=== PATIENT | male | born 1950 | race Caucasian/White ===

== ENCOUNTER → 2019-04-01 | Outpatient (CLI) | payer OTHER ==
[~2019-04-01] VITALS: Ht 180.3 cm; Wt 88.5 kg
[~2019-04-01] MED LIST: AMLODIPINE BESY10 MG PO; ANORO ELLIPTA1 EACH INH; COLACE100 MG PO; DEXILANT60 MG PO; HYDROCHLOROTHIA25 M2 PO; IMDUR 30 MG TAB30 M1 PO; KLOR-CON 1010 MEQ PO; LEVOTHYROXIN0.075 MG PO; NEURONTIN100 MG PO; NORTRIPTYLINE H25 M3 PO; OMEPRAZOLE40 MG PO; OXYCODONE HCL15 MG PO; PLAVIX 75 MG TA75 M1 PO; PRAVACHOL20 MG PO; PROAIR HFA8.5 GM INH; REGLAN 10 MG TA10 MG PO; ROBAXIN 750 MG750 M1 PO; SPIRIVA INH; TRIAMCINOLONE A80 G2 TOP
[2019-04-01 09:26] VITALS: BP 140/77
== END | disposition home or self-care (01) ==
LOC: CATH 08:57
DX: T82.858A Stenosis of other vascular prosthetic devices, implants and grafts, initial encounter (principal); I77.1 Stricture of artery; I70.1 Atherosclerosis of renal artery; I10 Essential (primary) hypertension; I25.10 Atherosclerotic heart disease of native coronary artery without angina pectoris; E03.9 Hypothyroidism, unspecified; M19.90 Unspecified osteoarthritis, unspecified site; M81.0 Age-related osteoporosis without current pathological fracture; E78.5 Hyperlipidemia, unspecified; J44.9 Chronic obstructive pulmonary disease, unspecified; Z98.890 Other specified postprocedural states; Z79.899 Other long term (current) drug therapy; Z88.8 Allergy status to other drugs, medicaments and biological substances; Z87.891 Personal history of nicotine dependence; Y83.8 Other surgical procedures as the cause of abnormal reaction of the patient, or of later complication, without mention of misadventure at the time of the procedure

== ENCOUNTER → 2019-09-01 | Outpatient (CLI) | payer OTHER | LOC: SJCVCIMAG 08:39 | DX: I11.9 Hypertensive heart disease without heart failure (principal); I06.1 Rheumatic aortic insufficiency; I25.10 Atherosclerotic heart disease of native coronary artery without angina pectoris; I45.10 Unspecified right bundle-branch block; R94.31 Abnormal electrocardiogram [ECG] [EKG]; Z98.61 Coronary angioplasty status; Z79.899 Other long term (current) drug therapy; Z87.891 Personal history of nicotine dependence ==

== ENCOUNTER → 2020-01-06 | Outpatient (CLI) | payer OTHER ==
[~2020-01-06] MED LIST changes: +CLOTRIMAZOLE-BE15 GM TOP; +IMDUR 60 MG TAB60 M1 PO; +KENALOG100 GM TOP; +MAGNESIUM250 M1 PO; +MOVANTIK25 MG PO; +NITROGLYCERIN0.4 MG SUBLING; +PAMELOR25 MG PO; +POTASSIUM20 PO
== END ==
LOC: SJCVC 13:02
PROVIDERS: ATTEND Internal Medicine
DX: R94.31 Abnormal electrocardiogram [ECG] [EKG] (principal); I45.2 Bifascicular block; I25.10 Atherosclerotic heart disease of native coronary artery without angina pectoris; E78.00 Pure hypercholesterolemia, unspecified; I10 Essential (primary) hypertension; I73.9 Peripheral vascular disease, unspecified; Z79.899 Other long term (current) drug therapy; Z87.891 Personal history of nicotine dependence

== ENCOUNTER → 2020-01-12 | Outpatient (CLI) | payer OTHER ==
[~2020-01-12] VITALS: Ht 180.3 cm; Wt 92.1 kg
--- NOTE | ~2020-01-12 | H ---
[facility] [place] [address] HISTORY AND PHYSICAL Name: KAYLA VARMA Room #: REG ERMA Janelle#: [id number] Admission: 01/12/20 Attend Phys: Oscar Crowe Discharge: Date of : 54 Report #: [id number] THIS REPORT FOR: cc: Calderon Rodarte MD, John P. MD Lammoglia, Francisco J. MD ~ CC: Oscar Rodarte HISTORY OF PRESENT ILLNESS: This is a very pleasant 69-year-old gentleman who was seen in the office for assessment and evaluation of chest discomfort. He underwent noninvasive assessment, which was abnormal, which suggested ischemic regions of myocardium. Options of medical versus invasive were discussed. The patient shows invasive and therefore is here today for invasive diagnostic studies. PHYSICAL EXAMINATION: GENERAL: Well-developed, well-nourished male, resting comfortably, in no acute distress. HEENT: Normocephalic, atraumatic. Pupils are equal, round, reactive to light and accommodation. Extraocular muscles are intact. Sclerae and conjunctivae are anicteric. NECK: JVD is normal. Carotid upstrokes are bilaterally symmetrical. No bruits are heard. No thyromegaly. No lymphadenopathy. LUNGS: Clear to auscultation. No wheezes, rhonchi or crackles. No CVA tenderness. CARDIAC: Demonstrates a regular rhythm. Normal first and second heart sounds. No ventricular or atrial gallops, no rubs noted. No murmurs. No lifts or heaves, PMI normal. ABDOMEN: Soft, nontender, nondistended. Normal bowel sounds. EXTREMITIES: Without cyanosis, clubbing or edema. Distal pulses are intact. DTR symmetrical. NEUROLOGIC: Cranial nerves 2-12 are grossly normal and symmetrical. PSYCHIATRIC: Alert, oriented with normal affect. SKIN: Warm and dry. IMPRESSION AND PLAN: Chest discomfort, abnormal noninvasive evaluation. The risks, complications and alternatives to cardiac catheterization, percutaneous revascularization and conscious sedation have been discussed with the patient. Voices understanding and wishes to proceed. By: [id number] 1137 Oscar Crowe MD /nt
[2020-01-12 09:59] VITALS: BP 1301/79
[2020-01-12 10:07] LABS: HEMATOCRIT 44.2 % (42.0-52.0); HEMOGLOBIN 14.5 gm/dL (14.0-18.0); MCH 27.5 pg (26.0-34.0); MCHC 32.8 g/dL (28.0-37.0); MCV 83.7 fL (80.0-100.0); RBC 5.28 mil/uL (4.50-6.00); RDW 16.8 % (10.5-14.5); WBC 11.1 thou/uL (4.0-11.0)
[2020-01-12 10:15] LABS: CALCIUM 8.5 mg/dL (8.5-10.1); CREATININE 1.3 mg/dL (0.7-1.3)
--- NOTE | 2020-01-13 07:19 | EKG ---
[facility] [address] ELECTROCARDIOGRAM REPORT Name: [facility] VARMA [id number]: 01/12/20 Attend Phys: Oscar Crowe Discharge: Date of : 54 Report #: [id number] THIS REPORT FOR: cc: Calderon Rodarte MD, John P. MD Lundgren,Lobo Griffith MD [facility] ~ THIS REPORT FOR: //name// [facility] Test Date: 2020-01-12 Test Time: 10:26:31 Pat Name: KAYLA VARMA Department: Room: Gender: Price Analyst: Nancy NUNES : 1950 Requested By: Oscar Crowe Order Number: [id number] MD: Lobo Felix Measurements Intervals [place] Rate: 88 P: 63 MT: 176 QRS: -65 QRSD: 149 T: 74 QT: 412 QTc: 499 Interpretive Statements Sinus rhythm Atrial premature complex RBBB and LAFB Left ventricular hypertrophy No previous ECG available for comparison Electronically Signed On 01-13-2020 7:18:28 CDT by Lobo Felix [email or web address] <ELECTRONICALLY SIGNED> By: Lobo Felix MD, [facility] 01/13/20 0718 1026 1026 Lobo Felix MD, [facility] /EPI
--- NOTE | 2020-01-20 12:49 | CATHLAB ---
[facility] [place] [address] INVASIVE PROCEDURE REPORT Name: KAYLA VARMA Room #: REG ERMA Janelle#: [id number] Admission: 01/12/20 Attend Phys: Oscar Crowe Discharge: Date of : 54 Report #: [id number] THIS REPORT FOR: cc: Calderon Rodarte MD, John P. MD Lammoglia, Francisco J. MD ~ APPROVED REPORT Study performed: 01/12/2020 11:06:24 Patient Details Patient Status: Out-Patient Room #: The patient is a 69 year-old male Event Personnel Oscar Crowe Special Population Paraprofessional, Dayron Anderson RN RN, Zahida Brady RTR Monitor, Michelle Pennington RTR Monitor, Wil Hernández RTR Scrub Procedures Performed Left Heart Cath w/or w/o Coronaries [id number] [facility] Art Access - R femoral artery* 27251 Initial Mod Sed Same Phys/QHP Gr5y [id number] Hemostasis with Manual pressure, supervision of conscious sedation Indication Positive stress test, Chest pain Procedure Narrative The patient was brought electively to the Cardiac Catheterization Laboratory and was prepped and draped in a sterile manner. The Right Groin^ was infiltrated with 1% Lidocaine subcutaneous anesthesia. A PINNACLE 4FR Sheath #[id number] sheath was inserted into the RFA^. Coronary angiography was performed using coronary diagnostic catheters. The right coronary system was accessed and visualized with a JR4 catheter. The left coronary system was accessed and visualized with a JL4 catheter. The left ventricle was accessed and visualized with a ANGLED PIGTAIL catheter. Hemostasis was obtained with manual pressure following sheath removal without any complications. The patient tolerated the procedure well and there were no complications associated with the procedure. There was no hematoma. Intraoperative Conscious Sedation Sedation start time: 11:46 Case end Time: [facility] [place] [address] INVASIVE PROCEDURE REPORT Name: KAYLA VARMA Room #: REG Janelle#: [id number] Admission: 01/12/20 Attend Phys: Oscar Roland Discharge: Date of : 54 Report #: [id number] 12:13 Versed 2 mg Fluoro Time: 2.47 minutes Dose: DAP 3574.50 cGycm2 520 mGy Contrast Type and Amount: Visipaque 45 ml Coronary Angiography The patient's coronary anatomy is right dominant. Diagnostic Cath Left Main Normal origin large caliber bifurcates left anterior descending left circumflex it is free of high-grade disease LAD Moderate caliber vessel that tapers from origin to termination. It is a type III vessel and has regions of mild to moderate irregularities in its proximal mid and distal course. No high-grade obstructive lesions are noted. Diagonal 1 Small caliber vessel arising in the mid LAD without high-grade lesion Circumflex Moderate to large caliber vessel gives rise to an early marginal versus ramus branch. It courses in the AV groove giving rise to a second marginal branch and continues posteriorly terminating a posterior wall bifurcating branch. Only luminal irregularities are noted no high-grade lesions are present Right Coronary Large-caliber dominant vessel normal origin proceeds in the AV groove to the acute margin. In this proximal portion there is irregularities of 30% or less noted throughout. RV branch and arises. The vessel continues posterior to the crux of the heart giving rise to a posterior descending artery and continuing on with a small to moderate posterior wall branch and a moderate to large posterior lateral branch. The mid and distal RCA are free of high-grade disease R PDA Moderate caliber vessel without high-grade blockages noted. Left Ventriculography Left Ventriculography was not performed. Hemodynamics The aortic pressure is 129/70 mmHg with a mean of mmHg. The left ventricular pressure is 121/4 mmHg with a mean of mmHg. The left ventricular end diastolic pressure is 23 mmHg. Pullback from the left ventricle to the aorta revealed no gradient across the aortic valve. [facility] [address] [place] [address] INVASIVE PROCEDURE REPORT Name: KAYLA VARMA Room #: REG Janelle#: [id number] Admission: 01/12/20 Attend Phys: Oscar Roland Discharge: Date of : 54 Report #: [id number] Conclusion 1. 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 Normal hemodynamics with normal low ventricular diastolic pressures Recommendations Cardiac Risk Reduction Program Medical Therapy <ELECTRONICALLY SIGNED> By: Oscar Crowe MD 01/20/20 1249 1249 1249 Oscar Crowe MD /INF
== END | disposition home or self-care (01) ==
LOC: CATH 09:12
PROVIDERS: ATTEND Internal Medicine
DX: R07.9 Chest pain, unspecified (principal); R94.39 Abnormal result of other cardiovascular function study; I25.10 Atherosclerotic heart disease of native coronary artery without angina pectoris; I10 Essential (primary) hypertension; J44.9 Chronic obstructive pulmonary disease, unspecified; E78.5 Hyperlipidemia, unspecified; E03.9 Hypothyroidism, unspecified; M19.90 Unspecified osteoarthritis, unspecified site; M81.0 Age-related osteoporosis without current pathological fracture; F17.210 Nicotine dependence, cigarettes, uncomplicated; Z98.890 Other specified postprocedural states; Z79.899 Other long term (current) drug therapy; Z88.8 Allergy status to other drugs, medicaments and biological substances

== ENCOUNTER → 2020-02-10 | Outpatient (CLI) | payer OTHER | LOC: SJCVC 10:15 | PROVIDERS: ATTEND Internal Medicine | DX: I25.10 Atherosclerotic heart disease of native coronary artery without angina pectoris (principal); I48.0 Paroxysmal atrial fibrillation; R06.09 Other forms of dyspnea; K22.2 Esophageal obstruction; I73.9 Peripheral vascular disease, unspecified; Z79.899 Other long term (current) drug therapy; Z87.891 Personal history of nicotine dependence ==